=== PATIENT | female | born 1985 | race American Indian/Alaskan Native ===

== ENCOUNTER 2017-03-17 14:10 | Outpatient (CLI) | payer MEDICAID ==
[2017-03-17] MEDS ORDERED: LACTATED RINGERS 500 ML IV ONE (14:37)
[2017-03-17 14:41] VITALS: BP 112/72
[2017-03-17 15:06] LABS: Bacteria,Urine 1+ /HPF (Negative); Bilirubin,Urine NEG (Negative); Blood,Urine NEG (Negative); Ketones,Urine NEG (Negative); Leukocyte Esterase,Urine NEG (Negative); Nitrite,Urine NEG (Negative); Protein,Urine <15 mg/dL mg/dL (Negative); Urobilinogen,Urine < 2.0 mg/dL (<2.0)
[2017-03-18 06:36] LABS: Urine Drugs of Abuse Note Disclamer
== END 2017-03-17 16:35 | disposition home or self-care (01) ==
LOC: TRG 14:10
PROVIDERS: ATTEND Obstetrics & Gynecology
DX: O47.03 False labor before 37 completed weeks of gestation, third trimester (principal); Z3A.31 31 weeks gestation of pregnancy
CPT/HCPCS: 80307; 81001